=== PATIENT | male | born 1990 | race Caucasian/White ===

== ENCOUNTER 2020-10-11 18:52 | Emergency (ER) | payer OTHER | END 2020-10-11 19:22 | disposition home or self-care (01) | LOC: JVIRT 18:52 | DX: U07.1 COVID-19 (principal) | CPT/HCPCS: C9803; Q3014-GT; U0003 ==

== ENCOUNTER 2020-10-17 11:46 | Emergency (ER) | payer OTHER ==
[2020-10-17 11:56] VITALS: BP 130/78; PULSE 90; TEMP 98.4; BMI 20.5
[2020-10-17] MEDS ORDERED: ONDANSETRON *ODT* 4 MG TABLET SL ONE (12:33)
[2020-10-17] MEDS ORDERED: ONDANSETRON *ODT* 4 MG TABLET ONE (13:27)
== END 2020-10-17 14:09 | disposition home or self-care (01) ==
LOC: JER 11:46
DX: Z11.59 Encounter for screening for other viral diseases (principal)
CPT/HCPCS: 71045-TC-FY; 99284-25; Q0162